=== PATIENT | male | born 1960 | race Caucasian/White ===

== ENCOUNTER 2020-08-03 06:56 | Emergency (ER) | payer OTHER ==
[~2020-08-03] VITALS: Ht 182.9 cm; Wt 117.9 kg
[~2020-08-03 06:56] MED LIST: ALBIPROI INH; ALBU90I INH; ALBU90OI INH; ALBU90OI6 INH; AMLO10; AMOX500 PO; ATECHL; ATEN50; AZIT250 PO; Augmentin 875-1 EACH PO; Bactrim Ds Tab1 EACH PO; CALCAVITDA PO; CEPH500 PO; CLAR500 PO; Chantix1 EACH; DIPH25 PO; DOXY100 PO; Duoneb 2.5-0.5 M3 ML INH; FISH1000 PO; GABA300; GABA600 PO; GLIP5ER PO; GUAI100SY; HYDACE10B PO; HYDACE5 PO; IBUP600; INSULANPEN; LISI10 PO; LISI20 PO; LISI5 PO; LUNESTA; METF500 PO; OFLO.3OPSO OP; PRAV10 PO; PRAV20 PO; PRED10 PO; PRED20 PO; PRIMATINE MIST; Percocet 5-3251 EACH PO; Prednisone20 MG PO; RXALBOI INH; Reglan10 MG PO; SPACER IH; THERA FLU; TOUJEO SOL300 UNIT/1 SQ; TRAZ100; VARE1; Vistaril50 MG PO; Zofran Odt4 MG SL
[2020-08-03] MEDS ORDERED: PRINIVIL10 MG PO (07:38)
[2020-08-03] MEDS ORDERED: BASAGLAR K100 UNIT/7 SQ (07:38)
[2020-08-03] MEDS ORDERED: Zofran4 MG PO (08:20)
== END 2020-08-03 09:25 | disposition home or self-care (01) ==
LOC: ER 06:56
DX: R11.2 Nausea with vomiting, unspecified (principal); R19.7 Diarrhea, unspecified; E11.9 Type 2 diabetes mellitus without complications; I10 Essential (primary) hypertension; F17.210 Nicotine dependence, cigarettes, uncomplicated; Z79.4 Long term (current) use of insulin; Z79.899 Other long term (current) drug therapy
CPT/HCPCS: 99283; A9270

== ENCOUNTER 2021-03-30 17:41 | Emergency (ER) | payer OTHER ==
[~2021-03-30] VITALS: Ht 182.9 cm; Wt 113.4 kg
[~2021-03-30 17:41] MED LIST changes: +BASAGLAR K100 UNIT/7 SQ; +PRINIVIL10 MG PO; +Zofran4 MG PO
[2021-03-30 18:29] LABS: BASOPHILS ABSOLUTE AUTO 0.08 K/mm3 (0.00-0.23); BASOPHILS PERCENT AUTO 1 % (0-2); EOSINOPHILS ABSOLUTE AUTO 0.41 K/mm3 (0.00-0.68); EOSINOPHILS PERCENT AUTO 5 % (0-6); Hemoglobin 15.2 g/dL (13.5-17.5); IMMATURE GRAN ABSOLUTE AUTO 0.03 K/mm3 (0.00-0.10); IMMATURE GRAN PERCENT AUTO 0 % (0-1); LYMPHOCYTES ABSOLUTE AUTO 2.03 K/mm3 (0.84-5.20); LYMPHOCYTES PERCENT AUTO 24 % (21-46); MONOCYTES ABSOLUTE AUTO 0.54 K/mm3 (0.16-1.47); MONOCYTES PERCENT AUTO 6 % (4-13); Mean Corpuscular HGB 28.3 pg (26.0-34.0); Mean Corpuscular Volume 86 fL (80-100); Mean Platelet Volume 9.9 fL (9.1-12.4); NEUTROPHILS ABSOLUTE AUTO 5.52 K/mm3 (1.96-9.15); NEUTROPHILS PERCENT AUTO 64 % (41-73); Platelet Count 254 K/mm3 (150-400); RDW Coefficient Variation 13.6 % (11.7-14.2); RDW Standard Deviation 43.1 fL (35.1-46.3); Red Blood Cell Count 5.37 M/mm3 (4.30-5.90); White Blood Cell Count 8.61 K/mm3 (4.00-11.30)
[2021-03-30 18:43] LABS: Alanine Aminotransfer (ALT/SGP 19 U/L (12-78); Albumin, Blood 3.2 g/dL (3.4-5.0); Albumin/Globulin Ratio 0.7 (0.8-1.8); Alk Phos 118 U/L (50-136); Anion Gap 3 mmol/L (6-16); Aspartate Aminotrans (AST/SGOT 10 U/L (12-37); Bilirubin, Total 0.2 mg/dL (0.1-1.0); Blood Urea Nitrogen 14 mg/dL (8-24); Bun/Creatinine Ratio 19.3 (12.0-20.0); CO2, Blood 27 mmol/L (21-32); Calcium, Blood 8.8 mg/dL (8.5-10.1); Chloride, Blood 104 mmol/L (98-108); Creatinine, Blood 0.73 mg/dL (0.60-1.20); Globulin, Blood 4.4 g/dL (2.2-4.0); Glomerular Filtration Rate >60 (60-); Glucose, Blood 304 mg/dL (70-99); Sodium, Blood 134 mmol/L (136-145); Total Protein, Blood 7.6 g/dL (6.4-8.2)
[2021-03-30] MEDS ORDERED: Bactrim Ds Tab1 EACH PO (19:32)
[2021-03-30] MEDS ORDERED: CEPH500 PO (19:32)
== END 2021-03-30 19:46 | disposition home or self-care (01) ==
LOC: ER 17:41
PROVIDERS: Physician Assistant
DX: L03.031 Cellulitis of right toe (principal); L03.115 Cellulitis of right lower limb; E11.42 Type 2 diabetes mellitus with diabetic polyneuropathy; I10 Essential (primary) hypertension; J45.909 Unspecified asthma, uncomplicated; F17.210 Nicotine dependence, cigarettes, uncomplicated; Z79.899 Other long term (current) drug therapy; Z79.4 Long term (current) use of insulin
CPT/HCPCS: 36415; 73660; 80053; 85025; 85651; 86141; 99283-25; A9270

== ENCOUNTER 2021-12-21 17:30 | Emergency (ER) | payer OTHER ==
[~2021-12-21] VITALS: Ht 185.4 cm; Wt 108.9 kg
[~2021-12-21 17:30] MED LIST changes: +BASAGLAR K100 UNIT/1 SC; +GABA100
[2021-12-21 18:59] LABS: BASOPHILS ABSOLUTE AUTO 0.05 K/mm3 (0.00-0.23); BASOPHILS PERCENT AUTO 0 % (0-2); EOSINOPHILS ABSOLUTE AUTO 0.09 K/mm3 (0.00-0.68); EOSINOPHILS PERCENT AUTO 1 % (0-6); Hematocrit 49.8 % (37.0-53.0); Hemoglobin 16.4 g/dL (13.5-17.5); IMMATURE GRAN ABSOLUTE AUTO 0.07 K/mm3 (0.00-0.10); IMMATURE GRAN PERCENT AUTO 0 % (0-1); LYMPHOCYTES ABSOLUTE AUTO 1.11 K/mm3 (0.84-5.20); LYMPHOCYTES PERCENT AUTO 7 % (21-46); MONOCYTES ABSOLUTE AUTO 0.84 K/mm3 (0.16-1.47); MONOCYTES PERCENT AUTO 5 % (4-13); Mean Corpuscular HGB 28.3 pg (26.0-34.0); Mean Corpuscular HGB Conc 32.9 g/dL (31.5-36.5); Mean Corpuscular Volume 86 fL (80-100); Mean Platelet Volume 10.6 fL (9.1-12.4); NEUTROPHILS PERCENT AUTO 86 % (41-73); Platelet Count 207 K/mm3 (150-400); RDW Coefficient Variation 13.2 % (11.7-14.2); RDW Standard Deviation 41.1 fL (35.1-46.3); Red Blood Cell Count 5.79 M/mm3 (4.30-5.90); White Blood Cell Count 15.66 K/mm3 (4.00-11.30)
[2021-12-21 19:15] LABS: Albumin, Blood 3.2 g/dL (3.4-5.0); Albumin/Globulin Ratio 0.6 (0.8-1.8); Bilirubin, Total 0.5 mg/dL (0.1-1.0); Bun/Creatinine Ratio 17.2 (12.0-20.0); Calcium, Blood 9.1 mg/dL (8.5-10.1); Creatinine, Blood 0.7 mg/dL (0.60-1.20); Globulin, Blood 5.2 g/dL (2.2-4.0); Potassium, Blood 3.9 mmol/L (3.5-5.5); Total Protein, Blood 8.4 g/dL (6.4-8.2)
[2021-12-21] MEDS ORDERED: Clindamycin HC150 MG PO (23:49)
[2021-12-23] MEDS ORDERED: Bactrim Ds Tab1 EACH PO (13:17)
[2021-12-23] MEDS ORDERED: CEPH500 PO (13:17)
== END 2021-12-22 | disposition home or self-care (01) ==
LOC: ER 17:30
PROVIDERS: Student in an Organized Health Care Education/Training Program
DX: L03.115 Cellulitis of right lower limb (principal); I10 Essential (primary) hypertension; E11.40 Type 2 diabetes mellitus with diabetic neuropathy, unspecified; J44.9 Chronic obstructive pulmonary disease, unspecified; F17.210 Nicotine dependence, cigarettes, uncomplicated; Z79.899 Other long term (current) drug therapy; Z79.4 Long term (current) use of insulin
CPT/HCPCS: 36415; 73630; 73701; 80053; 85025; 93971; A9270; J0696; Q9967

== ENCOUNTER 2021-12-23 11:04 | Emergency (ER) | payer OTHER ==
[~2021-12-23] VITALS: Ht 185.4 cm; Wt 108.9 kg
[~2021-12-23 11:04] MED LIST changes: +Clindamycin HC150 MG PO
[2021-12-23 12:19] LABS: BASOPHILS ABSOLUTE AUTO 0.04 K/mm3 (0.00-0.23); BASOPHILS PERCENT AUTO 0 % (0-2); EOSINOPHILS ABSOLUTE AUTO 0.04 K/mm3 (0.00-0.68); EOSINOPHILS PERCENT AUTO 0 % (0-6); Hematocrit 45.8 % (37.0-53.0); Hemoglobin 15.6 g/dL (13.5-17.5); IMMATURE GRAN ABSOLUTE AUTO 0.06 K/mm3 (0.00-0.10); IMMATURE GRAN PERCENT AUTO 1 % (0-1); LYMPHOCYTES ABSOLUTE AUTO 1.13 K/mm3 (0.84-5.20); LYMPHOCYTES PERCENT AUTO 9 % (21-46); MONOCYTES ABSOLUTE AUTO 0.75 K/mm3 (0.16-1.47); MONOCYTES PERCENT AUTO 6 % (4-13); Mean Corpuscular HGB 28.4 pg (26.0-34.0); Mean Corpuscular HGB Conc 34.1 g/dL (31.5-36.5); Mean Corpuscular Volume 83 fL (80-100); Mean Platelet Volume 10.5 fL (9.1-12.4); NEUTROPHILS ABSOLUTE AUTO 11.03 K/mm3 (1.96-9.15); NEUTROPHILS PERCENT AUTO 85 % (41-73); Platelet Count 238 K/mm3 (150-400); RDW Coefficient Variation 13.1 % (11.7-14.2); RDW Standard Deviation 40.1 fL (35.1-46.3); Red Blood Cell Count 5.49 M/mm3 (4.30-5.90); White Blood Cell Count 13.05 K/mm3 (4.00-11.30)
[2021-12-23 12:39] LABS: Albumin, Blood 2.7 g/dL (3.4-5.0); Albumin/Globulin Ratio 0.5 (0.8-1.8); Bilirubin, Total 0.8 mg/dL (0.1-1.0); Bun/Creatinine Ratio 16.8 (12.0-20.0); Calcium, Blood 8.7 mg/dL (8.5-10.1); Creatinine, Blood 0.6 mg/dL (0.60-1.20); Globulin, Blood 5.1 g/dL (2.2-4.0); Potassium, Blood 4.1 mmol/L (3.5-5.5); Total Protein, Blood 7.8 g/dL (6.4-8.2)
[2021-12-23] MEDS ORDERED: CEPH500 PO (13:17)
[2021-12-23] MEDS ORDERED: Bactrim Ds Tab1 EACH PO (13:17)
== END 2021-12-23 13:10 | disposition home or self-care (01) ==
LOC: ER 11:04
PROVIDERS: Physician Assistant
DX: L03.115 Cellulitis of right lower limb (principal); I10 Essential (primary) hypertension; J44.9 Chronic obstructive pulmonary disease, unspecified; E11.9 Type 2 diabetes mellitus without complications; F17.210 Nicotine dependence, cigarettes, uncomplicated; Z79.899 Other long term (current) drug therapy
CPT/HCPCS: 36415; 80053; 85025

== ENCOUNTER 2022-01-23 11:16 | Emergency (ER) | payer OTHER ==
[~2022-01-23] VITALS: Ht 185.4 cm; Wt 108.9 kg
[2022-01-23] MEDS ORDERED: CEPH500 PO (12:02)
== END 2022-01-23 12:09 | disposition home or self-care (01) ==
LOC: ER 11:16
DX: L03.116 Cellulitis of left lower limb (principal); I10 Essential (primary) hypertension; J44.9 Chronic obstructive pulmonary disease, unspecified; E11.9 Type 2 diabetes mellitus without complications; F17.210 Nicotine dependence, cigarettes, uncomplicated; Z79.899 Other long term (current) drug therapy; Z79.4 Long term (current) use of insulin
CPT/HCPCS: 73630

== ENCOUNTER 2022-02-10 09:11 | Emergency (ER) | payer OTHER ==
[~2022-02-10] VITALS: Ht 177.8 cm; Wt 99.8 kg
[2022-02-10] MEDS ORDERED: Atarax10 MG PO (09:45)
[2022-02-10] MEDS ORDERED: CYMBALTA30 M2 PO (09:45)
[2022-02-10] MEDS ORDERED: OXYC10TA19 PO (09:45)
[2022-02-10] MEDS ORDERED: Cyclobenzaprine5 MG PO (11:44)
== END 2022-02-10 12:10 | disposition home or self-care (01) ==
LOC: ER 09:11
DX: M54.2 Cervicalgia (principal); G89.29 Other chronic pain; E11.42 Type 2 diabetes mellitus with diabetic polyneuropathy; R60.0 Localized edema; I10 Essential (primary) hypertension; J44.9 Chronic obstructive pulmonary disease, unspecified; F17.210 Nicotine dependence, cigarettes, uncomplicated; S91.301A Unspecified open wound, right foot, initial encounter; X58.XXXA Exposure to other specified factors, initial encounter; Z79.899 Other long term (current) drug therapy; Z79.4 Long term (current) use of insulin
CPT/HCPCS: 72040

== ENCOUNTER 2022-02-10 17:11 | Emergency (ER) | payer OTHER ==
[~2022-02-10] VITALS: Ht 193 cm; Wt 108.9 kg
[~2022-02-10 17:11] MED LIST changes: +Atarax10 MG PO; +CYMBALTA30 M2 PO; +Cyclobenzaprine5 MG PO; +OXYC10TA19 PO
[2022-02-12] MEDS ORDERED: NEURONTIN300 MG PO (19:33)
== END 2022-02-10 17:36 | disposition home or self-care (01) ==
LOC: ER 17:11
DX: M54.2 Cervicalgia (principal); M79.89 Other specified soft tissue disorders; E11.40 Type 2 diabetes mellitus with diabetic neuropathy, unspecified; J44.9 Chronic obstructive pulmonary disease, unspecified; F17.210 Nicotine dependence, cigarettes, uncomplicated; I10 Essential (primary) hypertension; Z79.899 Other long term (current) drug therapy; Z79.4 Long term (current) use of insulin
CPT/HCPCS: 99281

== ENCOUNTER 2022-02-12 14:46 | Inpatient (IN) | payer OTHER ==
[~2022-02-12] VITALS: Ht 180.3 cm; Wt 115.5 kg
[2022-02-12 15:18] LABS: BASOPHILS ABSOLUTE AUTO 0.03 K/mm3 (0.00-0.23); BASOPHILS PERCENT AUTO 0 % (0-2); EOSINOPHILS PERCENT AUTO 0 % (0-6); Hemoglobin 11.5 g/dL (13.5-17.5); IMMATURE GRAN ABSOLUTE AUTO 0.11 K/mm3 (0.00-0.10); IMMATURE GRAN PERCENT AUTO 1 % (0-1); LYMPHOCYTES ABSOLUTE AUTO 0.81 K/mm3 (0.84-5.20); LYMPHOCYTES PERCENT AUTO 5 % (21-46); MONOCYTES ABSOLUTE AUTO 0.94 K/mm3 (0.16-1.47); MONOCYTES PERCENT AUTO 6 % (4-13); Mean Corpuscular HGB 26.4 pg (26.0-34.0); Mean Corpuscular HGB Conc 32.9 g/dL (31.5-36.5); Mean Corpuscular Volume 81 fL (80-100); Mean Platelet Volume 9.9 fL (9.1-12.4); NEUTROPHILS ABSOLUTE AUTO 15.35 K/mm3 (1.96-9.15); NEUTROPHILS PERCENT AUTO 89 % (41-73); Platelet Count 452 K/mm3 (150-400); RDW Coefficient Variation 14.3 % (11.7-14.2); RDW Standard Deviation 42.5 fL (35.1-46.3); Red Blood Cell Count 4.35 M/mm3 (4.30-5.90); White Blood Cell Count 17.24 K/mm3 (4.00-11.30)
[2022-02-12 15:28] LABS: Albumin, Blood 1.7 g/dL (3.4-5.0); Albumin/Globulin Ratio 0.3 (0.8-1.8); Bilirubin, Total 0.3 mg/dL (0.1-1.0); Bun/Creatinine Ratio 15.4 (12.0-20.0); Calcium, Blood 8.7 mg/dL (8.5-10.1); Creatinine, Blood 0.46 mg/dL (0.60-1.20); Total Protein, Blood 7.7 g/dL (6.4-8.2)
[2022-02-12] MEDS ORDERED: NEURONTIN300 MG PO ×2 (19:33)
[2022-02-12] MEDS ORDERED: HUMALOG KW100 UNIT/1 SC (19:33)
[2022-02-12] MEDS ORDERED: CEPH500 PO ×2 (19:33→19:34)
[2022-02-12] MEDS ORDERED: BASAGLAR K100 UNIT/8 SC (19:33)
[2022-02-12] MEDS ORDERED: HYDHCL25 PO (19:34)
[2022-02-12] MEDS ORDERED: CYMBALTA30 M2 PO (19:34)
[2022-02-13 04:18] LABS: BASOPHILS ABSOLUTE AUTO 0.05 K/mm3 (0.00-0.23); BASOPHILS PERCENT AUTO 0 % (0-2); EOSINOPHILS ABSOLUTE AUTO 0.01 K/mm3 (0.00-0.68); EOSINOPHILS PERCENT AUTO 0 % (0-6); Hemoglobin 10.8 g/dL (13.5-17.5); IMMATURE GRAN PERCENT AUTO 1 % (0-1); LYMPHOCYTES ABSOLUTE AUTO 0.98 K/mm3 (0.84-5.20); LYMPHOCYTES PERCENT AUTO 7 % (21-46); MONOCYTES ABSOLUTE AUTO 0.79 K/mm3 (0.16-1.47); MONOCYTES PERCENT AUTO 6 % (4-13); Mean Corpuscular HGB Conc 31.8 g/dL (31.5-36.5); Mean Corpuscular Volume 82 fL (80-100); Mean Platelet Volume 9.9 fL (9.1-12.4); NEUTROPHILS PERCENT AUTO 85 % (41-73); Platelet Count 431 K/mm3 (150-400); RDW Coefficient Variation 14.5 % (11.7-14.2); RDW Standard Deviation 42.9 fL (35.1-46.3); Red Blood Cell Count 4.16 M/mm3 (4.30-5.90); White Blood Cell Count 13.23 K/mm3 (4.00-11.30)
[2022-02-13 04:55] LABS: Albumin, Blood 1.6 g/dL (3.4-5.0); Albumin/Globulin Ratio 0.3 (0.8-1.8); Bilirubin, Total 0.4 mg/dL (0.1-1.0); Bun/Creatinine Ratio 18.4 (12.0-20.0); Creatinine, Blood 0.6 mg/dL (0.60-1.20); Total Protein, Blood 6.6 g/dL (6.4-8.2)
--- NOTE | 2022-02-13 08:00 | NUR ---
ADMITTED TONIGHT WITH C/O NECK PAIN TO ER,HOWEVER ADMIT DX R/T L FOOT "OSTEOMYLITIS" PT FALLING ASLEEP WHILE BEING QUESTIONED FOR ADMIT. PT DEMANDING OF CARE. I CALLED AND OBTAINED ORDER FOR PAIN MEDS PER PT REQUEST PT WITHOUT TEETH. DIFF TO UNDERSTAND.
--- NOTE | 2022-02-13 16:10 | NUR ---
SHIFT SUMMARY PATIENT TIRED AND SLEPT MOST OF SHIFT. INDEPENDENT UP TO BATHROOM. SLURRED SPEECH AT BASELINE. LEFT FOOT WITH LARGE ULCER AND WOUND. OPEN TO AIR AND NO DRAINAGE. DR MTZ CONSULTED. PLAN IS FOR OPEN BIOPSY TOMORROW 02/14/22. NPO AFTER MIDNIGHT. IV FLUID RUNNING. MEDICATED FOR PAIN PRN. SS INSULIN COVERAGE. WILL GIVE REPORT TO RN ASSUMING CARE AT THIS TIME.
--- NOTE | 2022-02-13 16:55 | NUR ---
ASSUMED CARE OF PT, PT SLEEPING, AWAKENS EASILY WHEN INSULIN GIVEN, DENIES ANY DISCOMFORT AT THIS TIME, REPORT TO NOC RN.
[2022-02-14 03:25] LABS: SARS-Cov-2 (COVID-19) PCR, MMC NEGATIVE (NEGATIVE)
[2022-02-14 05:01] LABS: Hematocrit 32.1 % (37.0-53.0); Hemoglobin 10.4 g/dL (13.5-17.5); Mean Corpuscular HGB 26.3 pg (26.0-34.0); Mean Corpuscular HGB Conc 32.4 g/dL (31.5-36.5); Mean Corpuscular Volume 81 fL (80-100); Mean Platelet Volume 9.6 fL (9.1-12.4); Platelet Count 354 K/mm3 (150-400); RDW Coefficient Variation 14.2 % (11.7-14.2); Red Blood Cell Count 3.95 M/mm3 (4.30-5.90); White Blood Cell Count 13.72 K/mm3 (4.00-11.30)
[2022-02-14 05:17] LABS: Bun/Creatinine Ratio 15.3 (12.0-20.0); Calcium, Blood 7.5 mg/dL (8.5-10.1); Creatinine, Blood 0.46 mg/dL (0.60-1.20); Potassium, Blood 3.4 mmol/L (3.5-5.5)
--- NOTE | 2022-02-14 08:08 | NUR ---
SUMMARY PT REFUSING TO ANSWER FURTHER QUESTIONS REGARDING ADMIT HX.
--- NOTE | 2022-02-14 10:40 | NUR ---
THE WAS BROUGHT TO DAY SURGERY FOR HIS PROCEDURE.
--- NOTE | 2022-02-14 11:18 | NUR ---
02/14/22 1118 Fer Marquez NO ABX PER
--- NOTE | 2022-02-14 12:58 | NUR ---
POST OP S/P OPEN BIOPSY OF LEFT FOOT BY DR. BAILEY, PT ABLE TO MOVE SELF TO BED, LLE W/ SHAY WRAP DSG, C/D/I, DENIES ANY PAIN, LUNGS CLEAR, DIMINISHED AT BASES, HRR, ACTIVE BT'S X4, CONT. TO MONITOR VS AND ANY CHANGES.
--- NOTE | 2022-02-14 17:27 | NUR ---
SUMMARY S/P BONE BIOPSY OF L FOOT, DENIES ANY PAIN ON FOOT, CONT. TO C/O NECK PAIN, MEDICATED WITH 1 OXYCODONE FOR NECK PAIN TODAY, PT HAD LOW GRADE TEMPS AND HIGH BLOOD PRESSURE, DR. CARRILLO NOTIFIED THIS AM, UP TO THE BATHROOM OR USES URINAL AT BEDSIDE, REFUSED TO SIT ON CHAIR, PT SITS UP TO DANGLE, L FOOT DSG C/D/I, NO ACUTE CHANGES THIS SHIFT.
--- NOTE | 2022-02-14 23:39 | NUR ---
INSULINE DOSAGE CHANGED PT'S CBG AT 1999 WAS 398, ADMINISTERED 5 UNITS OF HUMALOG AND 20 UNITS OF INSULIN GARGLINE. CBG RECHECKED AT 2299 AND IT WAS 375, CALLED DR. TOSCANO, NOTIFIED THAT THE PT STATES HE TAKES 50 UNITS OF INSULIN GARGLINE AT HOME AND A SLIDING SCALE HUMALOG. NEW ORDERS ADDED: 10 UNITS OF INSULIN GARGLINE NOW AND WILL ADJUST BEDTIME INSULIN FROM 20 UNITS TO 30 UNITS. SEE EMR FOR CHANGES. WILL MONITOR BLOOD GLUCOSE AND WILL GRADUALLY ADJUST INSULIN GARGLINE COVERAGE PER DR. TOSCANO.
--- NOTE | 2022-02-15 05:18 | NUR ---
SHIFT SUMMARY POD1 BONE BIOPSY OF L FOOT. DENIES PAIN IN HIS L FOOT BUT REPORTS NECK PAIN AND HEADACHE. PT REPORTS H/A WORSE THIS MORNING. HE WAS CRYING IN HIS ROOM, UNABLE TO SLEEP AND DISTRESSED. CALLED DR. SHER, NOTIFIED AND AN ORDER FOR ONE TIME 50MCG OF [place] WAS GIVEN WITH A RELIEF. PT ALSO HAVE INCREASED CBG LAST NIGHT. CALLED DR. TOSCANO REGARDING CBG MANAGEMENT, SEE EMR NOTES. NEW ORDERS IN PLACE. PT IND IN ROOM. CALLS APPROPRIATELY. PROVIDE EDUCATION OF DIABETIC DIET. PT IS NON COMPLIANT. PT ALSO HARD TO UNDERSTAND BECAUSE HE DOESNT HAVE TEETH. IV FLUIDS INFUSING. PT TOLERATING PO INTAKE DENIES NAUSEA AND VOMITING. CALL LIGHT WITHIN REACH. WILL CONTINUE TO MONITOR AND WILL PROVIDE REPORT TO ONCOMING NURSE.
--- NOTE | 2022-02-15 18:14 | NUR ---
SHIFT SUMMARY POD 1 OPEN BONE BIOPSY OF LEFT FOOT. LEFT FOOT HAS ABD PAD, GAUZE, AND SHAY WRAP DRESSING IN PLACE, C/D/I. PATIENT REPORTS NO PAIN SINCE FLEXERIL GIVEN THIS AM. EATING, DRINKING, & VOIDING WELL. CALLS APPROPRIATELY, WILL REPORT TO ONCOMING RN.
[2022-02-16 05:18] LABS: Hematocrit 36.1 % (37.0-53.0); Hemoglobin 11.7 g/dL (13.5-17.5); Mean Corpuscular HGB 26.1 pg (26.0-34.0); Mean Corpuscular HGB Conc 32.4 g/dL (31.5-36.5); Mean Corpuscular Volume 80 fL (80-100); Mean Platelet Volume 9.7 fL (9.1-12.4); Platelet Count 371 K/mm3 (150-400); RDW Coefficient Variation 14.3 % (11.7-14.2); RDW Standard Deviation 41.9 fL (35.1-46.3); Red Blood Cell Count 4.49 M/mm3 (4.30-5.90)
[2022-02-16 05:38] LABS: Bun/Creatinine Ratio 11.9 (12.0-20.0); Calcium, Blood 7.3 mg/dL (8.5-10.1); Creatinine, Blood 0.5 mg/dL (0.60-1.20); Potassium, Blood 3.8 mmol/L (3.5-5.5)
--- NOTE | 2022-02-16 08:00 | NUR ---
PATIENT DECLINES USE OF WALKER TO AMBULATE TO BATHROOM AND DECLINES STAFF ASSISTANCE, THEREFOR NOT FOLLOWING NWB RESTRICTIONS ON LEFT FOOT.
[2022-02-16 12:05] LABS: Vancomycin, Trough 7.3 ug/mL (5.0-10.0)
--- NOTE | 2022-02-16 15:26 | NUR ---
SHIFT SUMMARY NO ACUTE CHANGES THIS SHIFT. PATIENT RESTIING IN BED MOST OF SHIFT, TO EDGE OF BED FOR MEALS AND TO USE URINAL, INDEPENDENT. SHAY WRAP REMAINS IN PLACE TO LEFT FOOT, C/D/I. GOOD CAP REFILL. PATIENT DENIES PAIN. CALLS APPROPRIATELY, WILL REPORT TO ONCOMING RN.
--- NOTE | 2022-02-16 16:30 | NUR ---
DR BAILEY, MUNICIPAL BOND TRADER, AT BEDSIDE TO CHANGE DRESSING ON LEFT FOOT. MODERATE BLEEDING PRESENT ON DRESSING, DRY AT THIS TIME. FOOT STILL WARM TO THE TOUCH. DR BAILEY STATED PATIENT IS READY TO DISCHARGE, FROM HIS STANDPOINT, WHEN THE MEDICAL TEAM DEEMS APPROPRIATE. WILL PLAN TO START ON ORAL ABX. HOSPITALIST CALLED BY THIS RN AND UPDATE GIVEN. NO NEW ORDERS.
--- NOTE | 2022-02-17 04:31 | NUR ---
SHIFT SUMMARY NO ACUTE CHANGES OVERNIGHT. PT HAD A INCONTINENT VOID, PEED ON THE FLOOR, HOUSEKEEPIGN CAME IN TO CLEAN, FULL LINEN CHANGED AND NEW PANTS GIVENT PT. PT REPORTS MILD H/A MEDICATED WITH HARINDER AND FLEXERIL FOR NECK PAIN. IV ABX GIVEN LAST NIGHT. CALL LIGHT WITHIN REACH. WILL CONTINUE TO MONITOR AND WILL PROVIDE REPORT TO ONCOMING NURSE.
[2022-02-17 05:45] LABS: Bun/Creatinine Ratio 11.3 (12.0-20.0); Calcium, Blood 7.5 mg/dL (8.5-10.1); Creatinine, Blood 0.44 mg/dL (0.60-1.20); Potassium, Blood 3.6 mmol/L (3.5-5.5)
[2022-02-17 06:01] LABS: Hematocrit 35.5 % (37.0-53.0); Hemoglobin 11.5 g/dL (13.5-17.5); Mean Corpuscular HGB 25.8 pg (26.0-34.0); Mean Corpuscular HGB Conc 32.4 g/dL (31.5-36.5); Mean Corpuscular Volume 80 fL (80-100); Platelet Count 327 K/mm3 (150-400); RDW Coefficient Variation 14.3 % (11.7-14.2); RDW Standard Deviation 41.3 fL (35.1-46.3); Red Blood Cell Count 4.46 M/mm3 (4.30-5.90)
--- NOTE | 2022-02-17 08:08 | NUR ---
PT REFUSED MORNING VS. ALLOWED CBG AND ASSESSMENT.
[2022-02-17] MEDS ORDERED: Cyclobenzaprine5 MG PO (13:46)
[2022-02-17] MEDS ORDERED: CUBICIN RF500 M1 IV (13:47)
[2022-02-17] MEDS ORDERED: DOCUZEN 8.6-501 EACH PO (13:47)
[2022-02-17] MEDS ORDERED: RIFA300 PO (13:48)
[2022-02-17] MEDS ORDERED: MIRALAX1713 PO (13:48)
[2022-02-17] MEDS ORDERED: VISBIOME 112.51 EACH PO (13:49)
--- NOTE | 2022-02-17 17:25 | NUR ---
discharging PT STATED WAS TOLD HE WOULD BE GIVEN RIDE UPON DISCHARGE. UPON INQUIRING WHAT ADDRESS, HE GAVE HIS HOME ADDRESS. PT WAS INFORMED HOSPITAL COULD NOT TRANSPORT HIM TO THIS ADDRESS DUE TO RESTRAINING ORDER PROHIBITING HIM. PT CONTINUED TO WANT TO BE TAKEN TO [facility] (WHERE HE RESIDES). HAD NURSING RECEIVING SPECIALIST, BING, COME SPEAK TO PT. PT WAS EXPLICITLY TOLD IF HE GOES TO HIS HOME ADDRESS, HE MAY BE ARRESTED DUE TO RESTRAINING ORDER. PLAN TO ARRANGE TAXI TO [facility] [address] PER PT REQUEST.
--- NOTE | 2022-02-17 18:03 | NUR ---
DISCHARGING REVIEWED DC PAPERWORK W/PT; VERBALIZED UNDERSTANDING. DC'D IV TO LFA, CATHETER INTACT. FLUSHED PICC LINE. PROVIDED POST OP SHOE TO PROTECT L FOOT DRESSING. PT IS NOT COMPLIANT W/NONWB INSTRUCTIONS. PROVIDED SOCKS FOR OTHER FOOT. ARRANGED TAXI RIDE TO [facility] [address] PER PT REQUEST. ADVISED PT EXPLICITLY THAT COULD NOT GO TO HOME ADDRESS DUE TO RESTRAINING ORDER. PT VERBALIZED UNDERSTANDING. TAXI TO ARRIVE IN APPROXIMATELY 30 MIN
--- NOTE | 2022-02-17 18:38 | NUR ---
PT LEFT UNIT IN WC W/POSSESSIONS AND DC PAPERWORK IN HAND TO MEET TAXI OUTSIDE.
== END 2022-02-17 18:50 | disposition home or self-care (01) | DRG 629 ==
LOC: ER 14:46 → SURS 20:00
PROVIDERS: Family Medicine; Internal Medicine; Physician Assistant; Podiatrist; ADMIT Internal Medicine
PROC: 02HV33Z Insertion of Infusion Device into Superior Vena Cava, Percutaneous Approach (ICD-10-PCS; 2022-02-12)
PROC: 0QBP0ZX Excision of Left Metatarsal, Open Approach, Diagnostic (ICD-10-PCS; principal; 2022-02-15)
DX: E11.69 Type 2 diabetes mellitus with other specified complication (principal); L03.116 Cellulitis of left lower limb; M86.172 Other acute osteomyelitis, left ankle and foot; E11.65 Type 2 diabetes mellitus with hyperglycemia; J44.9 Chronic obstructive pulmonary disease, unspecified; M43.6 Torticollis; B95.62 Methicillin resistant Staphylococcus aureus infection as the cause of diseases classified elsewhere; E11.42 Type 2 diabetes mellitus with diabetic polyneuropathy; I10 Essential (primary) hypertension; Z20.822 Contact with and (suspected) exposure to COVID-19; M54.2 Cervicalgia; F17.210 Nicotine dependence, cigarettes, uncomplicated; Z89.411 Acquired absence of right great toe; Z79.899 Other long term (current) drug therapy; Z79.4 Long term (current) use of insulin; Z91.14 Patient's other noncompliance with medication regimen
CPT/HCPCS: 36415; 36569; 73630; 80048; 80053; 80202; 82947; 83036; 85025; 85027; 85651; 86140; 87071; 87075; 87077; 87147; 87186; 87205; 88307; 93971; 94760; 96361; 96374; 99285-25; A9270; C1751; J0878; J1100; J1815; J1885; J2001; J2250; J2405; J2543; J2704; J2795; J3010; J3370; J3480; J7030; J7050; J7060; J7120; U0004

== ENCOUNTER 2022-02-19 13:04 | Emergency (ER) | payer OTHER ==
[~2022-02-19] VITALS: Ht 185.4 cm; Wt 117.9 kg
[~2022-02-19 13:04] MED LIST changes: +BASAGLAR K100 UNIT/8 SC; +CUBICIN RF500 M1 IV; +DOCUZEN 8.6-501 EACH PO; +HUMALOG KW100 UNIT/1 SC; +HYDHCL25 PO; +MIRALAX1713 PO; +NEURONTIN300 MG PO; +RIFA300 PO; +VISBIOME 112.51 EACH PO
[2022-02-25] MEDS ORDERED: CEPH500 PO (00:10)
[2022-02-25] MEDS ORDERED: ONDA4ODT MM (00:11)
[2022-02-25] MEDS ORDERED: SULTRIDS PO (00:18)
== END 2022-02-19 13:41 ==
LOC: ER 13:04
DX: Z02.89 Encounter for other administrative examinations (principal); E11.69 Type 2 diabetes mellitus with other specified complication; M86.9 Osteomyelitis, unspecified; F17.210 Nicotine dependence, cigarettes, uncomplicated
CPT/HCPCS: 99283

== ENCOUNTER 2022-02-19 21:05 | Emergency (ER) | payer OTHER ==
[~2022-02-19] VITALS: Ht 185.4 cm; Wt 117.9 kg
== END 2022-02-19 21:39 | disposition home or self-care (01) ==
LOC: ER 21:05
DX: Z45.2 Encounter for adjustment and management of vascular access device (principal); E11.9 Type 2 diabetes mellitus without complications; F17.210 Nicotine dependence, cigarettes, uncomplicated; Z79.4 Long term (current) use of insulin; Z79.899 Other long term (current) drug therapy
CPT/HCPCS: 99281

== ENCOUNTER 2022-02-20 14:56 | Emergency (ER) | payer OTHER ==
[~2022-02-20] VITALS: Ht 185.4 cm; Wt 120.2 kg
[2022-02-20 15:34] LABS: BASOPHILS ABSOLUTE AUTO 0.04 K/mm3 (0.00-0.23); BASOPHILS PERCENT AUTO 0 % (0-2); EOSINOPHILS PERCENT AUTO 0 % (0-6); Hematocrit 36.2 % (37.0-53.0); Hemoglobin 11.7 g/dL (13.5-17.5); IMMATURE GRAN ABSOLUTE AUTO 0.35 K/mm3 (0.00-0.10); IMMATURE GRAN PERCENT AUTO 2 % (0-1); LYMPHOCYTES PERCENT AUTO 9 % (21-46); MONOCYTES ABSOLUTE AUTO 1.09 K/mm3 (0.16-1.47); MONOCYTES PERCENT AUTO 6 % (4-13); Mean Corpuscular HGB 25.6 pg (26.0-34.0); Mean Corpuscular HGB Conc 32.3 g/dL (31.5-36.5); Mean Corpuscular Volume 79 fL (80-100); Mean Platelet Volume 9.5 fL (9.1-12.4); NEUTROPHILS ABSOLUTE AUTO 16.38 K/mm3 (1.96-9.15); NEUTROPHILS PERCENT AUTO 84 % (41-73); Platelet Count 382 K/mm3 (150-400); RDW Coefficient Variation 14.8 % (11.7-14.2); RDW Standard Deviation 42.8 fL (35.1-46.3); Red Blood Cell Count 4.57 M/mm3 (4.30-5.90); White Blood Cell Count 19.56 K/mm3 (4.00-11.30)
[2022-02-20 15:51] LABS: Albumin, Blood 1.8 g/dL (3.4-5.0); Albumin/Globulin Ratio 0.3 (0.8-1.8); Bilirubin, Total 0.6 mg/dL (0.1-1.0); Bun/Creatinine Ratio 14.9 (12.0-20.0); Calcium, Blood 8.4 mg/dL (8.5-10.1); Creatinine, Blood 0.67 mg/dL (0.60-1.20); Globulin, Blood 6.1 g/dL (2.2-4.0); Potassium, Blood 3.4 mmol/L (3.5-5.5); Total Protein, Blood 7.9 g/dL (6.4-8.2)
[2022-02-20 16:09] LABS: Source, Urine Clean Catch
[2022-02-20 16:15] LABS: Appearance, Urine Clear (Clear); Bilirubin, Urine Neg (Neg); Blood, Urine 2+ (Neg); Color, Urine Yellow (P-Yellow); Glucose Qualitative, Urine 4+ (Neg); Ketones, Urine Neg (Neg); Leukocyte Esterase, Urine Neg (Neg); Nitrite, Urine Neg (Neg); Protein, Urine Neg (Neg); Urobilinogen, Urine 2+ (Normal)
[2022-02-20 16:24] LABS: White Blood Cells, Urine 0-2 /hpf (0-5)
[2022-02-20 16:25] LABS: Bacteria Few /hpf; Squamous Epithelial Cells Rare /hpf (Few)
[2022-02-20 16:34] LABS: Base Excess Venous 7.2 mmol/L; Bicarbonate Venous 30.5 mmol/L (24.0-30.0); PCO2 Venous 37.9 mmHg (38-42); pH Blood Venous 7.51 (7.34-7.37)
== END 2022-02-20 18:41 | disposition home or self-care (01) ==
LOC: ER 14:56
PROVIDERS: Student in an Organized Health Care Education/Training Program
DX: E11.65 Type 2 diabetes mellitus with hyperglycemia (principal); E11.621 Type 2 diabetes mellitus with foot ulcer; E11.69 Type 2 diabetes mellitus with other specified complication; M86.9 Osteomyelitis, unspecified; I10 Essential (primary) hypertension; J44.9 Chronic obstructive pulmonary disease, unspecified; F17.210 Nicotine dependence, cigarettes, uncomplicated; Z89.421 Acquired absence of other right toe(s); Z79.4 Long term (current) use of insulin; Z91.14 Patient's other noncompliance with medication regimen; Z79.899 Other long term (current) drug therapy; Z95.828 Presence of other vascular implants and grafts
CPT/HCPCS: 36415; 80053; 81001; 82010; 82803; 82947; 83605; 85025; 93005; 93010; 96365; 99285-25; A9270; J0878; J1815; J7030

== ENCOUNTER 2022-04-03 01:43 | Day surgery (SDC) | payer OTHER ==
[~2022-04-03] VITALS: Ht 185.4 cm; Wt 109.8 kg
[~2022-04-03 01:43] MED LIST changes: +ONDA4ODT MM; +SULTRIDS PO; +VANCOMYCIN HCL1 G1 IV
== END 2022-04-03 11:15 | disposition home or self-care (01) ==
LOC: ATC 01:43
DX: E11.69 Type 2 diabetes mellitus with other specified complication (principal); M86.8X7 Other osteomyelitis, ankle and foot; I10 Essential (primary) hypertension; J44.9 Chronic obstructive pulmonary disease, unspecified; E11.40 Type 2 diabetes mellitus with diabetic neuropathy, unspecified; Z79.4 Long term (current) use of insulin
CPT/HCPCS: 96365; J0878

== ENCOUNTER 2022-04-04 02:11 | Day surgery (SDC) | payer OTHER ==
[2022-04-05] MEDS ORDERED: Roxicodone5 MG PO (13:30)
== END 2022-04-04 10:40 | disposition home or self-care (01) ==
LOC: ATC 02:11
DX: E11.69 Type 2 diabetes mellitus with other specified complication (principal); M86.9 Osteomyelitis, unspecified; E11.42 Type 2 diabetes mellitus with diabetic polyneuropathy; I10 Essential (primary) hypertension; J44.9 Chronic obstructive pulmonary disease, unspecified; F17.210 Nicotine dependence, cigarettes, uncomplicated; Z79.4 Long term (current) use of insulin
CPT/HCPCS: 96365; J0878

== ENCOUNTER 2022-04-05 02:10 | Day surgery (SDC) | payer OTHER ==
[2022-04-05] MEDS ORDERED: Roxicodone5 MG PO (13:30)
== END 2022-04-05 10:45 | disposition home or self-care (01) ==
LOC: ATC 02:10
DX: E11.69 Type 2 diabetes mellitus with other specified complication (principal); M86.8X7 Other osteomyelitis, ankle and foot; E11.65 Type 2 diabetes mellitus with hyperglycemia; F17.210 Nicotine dependence, cigarettes, uncomplicated; I10 Essential (primary) hypertension; J44.9 Chronic obstructive pulmonary disease, unspecified; Z79.4 Long term (current) use of insulin; E11.40 Type 2 diabetes mellitus with diabetic neuropathy, unspecified; R25.2 Cramp and spasm
CPT/HCPCS: 96365; A9270; J0878

== ENCOUNTER 2022-04-05 10:47 | Emergency (ER) | payer OTHER ==
[~2022-04-05] VITALS: Ht 188 cm; Wt 93.0 kg
[2022-04-05 12:57] LABS: BASOPHILS ABSOLUTE AUTO 0.07 K/mm3 (0.00-0.23); BASOPHILS PERCENT AUTO 1 % (0-2); EOSINOPHILS ABSOLUTE AUTO 0.06 K/mm3 (0.00-0.68); EOSINOPHILS PERCENT AUTO 1 % (0-6); Hematocrit 32.7 % (37.0-53.0); Hemoglobin 10.5 g/dL (13.5-17.5); IMMATURE GRAN ABSOLUTE AUTO 0.05 K/mm3 (0.00-0.10); IMMATURE GRAN PERCENT AUTO 1 % (0-1); LYMPHOCYTES ABSOLUTE AUTO 1.91 K/mm3 (0.84-5.20); LYMPHOCYTES PERCENT AUTO 19 % (21-46); MONOCYTES PERCENT AUTO 9 % (4-13); Mean Corpuscular HGB 25.4 pg (26.0-34.0); Mean Corpuscular HGB Conc 32.1 g/dL (31.5-36.5); Mean Corpuscular Volume 79 fL (80-100); Mean Platelet Volume 8.5 fL (9.1-12.4); NEUTROPHILS PERCENT AUTO 70 % (41-73); Platelet Count 454 K/mm3 (150-400); RDW Coefficient Variation 18.4 % (11.7-14.2); RDW Standard Deviation 53.4 fL (35.1-46.3); Red Blood Cell Count 4.14 M/mm3 (4.30-5.90); White Blood Cell Count 9.99 K/mm3 (4.00-11.30)
[2022-04-05 13:12] LABS: Bun/Creatinine Ratio 22.5 (12.0-20.0); Calcium, Blood 9.2 mg/dL (8.5-10.1); Creatinine, Blood 0.49 mg/dL (0.60-1.20); Potassium, Blood 3.8 mmol/L (3.5-5.5)
[2022-04-05] MEDS ORDERED: Roxicodone5 MG PO (13:30)
== END 2022-04-05 13:37 | disposition home or self-care (01) ==
LOC: ER 10:47
PROVIDERS: Emergency Medicine
DX: G89.18 Other acute postprocedural pain (principal); E11.9 Type 2 diabetes mellitus without complications; J44.9 Chronic obstructive pulmonary disease, unspecified; I10 Essential (primary) hypertension; Z79.4 Long term (current) use of insulin; Z79.899 Other long term (current) drug therapy; Z89.432 Acquired absence of left foot
CPT/HCPCS: 80048; 85025; 99283; A9270

== ENCOUNTER 2022-04-05 23:13 | Emergency (ER) | payer OTHER ==
[~2022-04-05] VITALS: Ht 182.9 cm; Wt 113.4 kg
[~2022-04-05 23:13] MED LIST changes: +Roxicodone5 MG PO
== END 2022-04-06 00:05 | disposition home or self-care (01) ==
LOC: ER 23:13
DX: R25.2 Cramp and spasm (principal); E11.40 Type 2 diabetes mellitus with diabetic neuropathy, unspecified; I10 Essential (primary) hypertension; J44.9 Chronic obstructive pulmonary disease, unspecified; F17.210 Nicotine dependence, cigarettes, uncomplicated; Z79.899 Other long term (current) drug therapy; Z79.4 Long term (current) use of insulin
CPT/HCPCS: 99283; A9270

== ENCOUNTER 2022-04-06 02:19 | Day surgery (SDC) | payer OTHER | END 2022-04-06 11:10 | disposition home or self-care (01) | LOC: ATC 02:19 | DX: E11.69 Type 2 diabetes mellitus with other specified complication (principal); M86.9 Osteomyelitis, unspecified; E11.42 Type 2 diabetes mellitus with diabetic polyneuropathy; I10 Essential (primary) hypertension; J44.9 Chronic obstructive pulmonary disease, unspecified; F17.210 Nicotine dependence, cigarettes, uncomplicated; Z79.4 Long term (current) use of insulin; Z89.421 Acquired absence of other right toe(s) | CPT/HCPCS: 96365; J0878 ==

== ENCOUNTER 2022-04-07 00:49 | Day surgery (SDC) | payer OTHER | END 2022-04-07 11:55 | disposition home or self-care (01) | LOC: ATC 00:49 | DX: E11.69 Type 2 diabetes mellitus with other specified complication (principal); M86.8X7 Other osteomyelitis, ankle and foot; E11.65 Type 2 diabetes mellitus with hyperglycemia; Z79.4 Long term (current) use of insulin; J44.9 Chronic obstructive pulmonary disease, unspecified; F17.210 Nicotine dependence, cigarettes, uncomplicated | CPT/HCPCS: 96365; J0878 ==

== ENCOUNTER 2022-04-08 00:27 | Day surgery (SDC) | payer OTHER | END 2022-04-08 10:55 | disposition home or self-care (01) | LOC: ATC 00:27 | DX: E11.69 Type 2 diabetes mellitus with other specified complication (principal); M86.8X7 Other osteomyelitis, ankle and foot; F17.210 Nicotine dependence, cigarettes, uncomplicated; J44.9 Chronic obstructive pulmonary disease, unspecified; E11.9 Type 2 diabetes mellitus without complications | CPT/HCPCS: 96365; J0878 ==

== ENCOUNTER 2022-04-09 02:17 | Day surgery (SDC) | payer OTHER ==
[2022-04-10] MEDS ORDERED: CUBICIN RF500 M1 IV (11:37)
== END 2022-04-09 23:43 | disposition home or self-care (01) ==
LOC: ATC 02:17
DX: E11.69 Type 2 diabetes mellitus with other specified complication (principal); M86.8X7 Other osteomyelitis, ankle and foot; E11.40 Type 2 diabetes mellitus with diabetic neuropathy, unspecified; I10 Essential (primary) hypertension; J44.9 Chronic obstructive pulmonary disease, unspecified
CPT/HCPCS: 96365; C1751; J0878

== ENCOUNTER 2022-04-10 00:12 | Day surgery (SDC) | payer OTHER ==
--- NOTE | 2022-04-10 11:27 | NUR ---
Patient arrived late to appt this morning at 1030. His speech was slurred and he was forgetful. His reports that he has not been acting himself and experiencing AMS since yesterday. He is having difficulty finding his words when trying to speak to me. He is spacing out often. His pupils are small and fixed. Nonreactive to light. Left arm is weaker than the right and he has slight left arm drift. Patients reports that he has fallen multiple times within the last few days and he did hit his head a few days ago. Patient was discharged and taken directly to ER to be evaluated. Called and spoke to the charge nurse to let them know he was heading straight up. Finished his dapto infusion as he was being transported to ER
[2022-04-10] MEDS ORDERED: CUBICIN RF500 M1 IV (11:37)
== END 2022-04-10 11:06 | disposition home or self-care (01) ==
LOC: ATC 00:12
DX: E11.69 Type 2 diabetes mellitus with other specified complication (principal); M86.8X7 Other osteomyelitis, ankle and foot; Z79.4 Long term (current) use of insulin; J44.9 Chronic obstructive pulmonary disease, unspecified; F17.210 Nicotine dependence, cigarettes, uncomplicated; E11.65 Type 2 diabetes mellitus with hyperglycemia
CPT/HCPCS: J0878

== ENCOUNTER 2022-04-10 11:11 | Emergency (ER) | payer OTHER ==
[~2022-04-10] VITALS: Ht 185.4 cm; Wt 93.0 kg
[2022-04-10] MEDS ORDERED: CUBICIN RF500 M1 IV (11:37)
[2022-04-10 11:43] LABS: BASOPHILS ABSOLUTE AUTO 0.08 K/mm3 (0.00-0.23); BASOPHILS PERCENT AUTO 1 % (0-2); EOSINOPHILS ABSOLUTE AUTO 0.07 K/mm3 (0.00-0.68); EOSINOPHILS PERCENT AUTO 1 % (0-6); Hematocrit 33.1 % (37.0-53.0); Hemoglobin 10.2 g/dL (13.5-17.5); IMMATURE GRAN ABSOLUTE AUTO 0.06 K/mm3 (0.00-0.10); IMMATURE GRAN PERCENT AUTO 1 % (0-1); LYMPHOCYTES ABSOLUTE AUTO 1.55 K/mm3 (0.84-5.20); LYMPHOCYTES PERCENT AUTO 18 % (21-46); MONOCYTES ABSOLUTE AUTO 0.68 K/mm3 (0.16-1.47); MONOCYTES PERCENT AUTO 8 % (4-13); Mean Corpuscular HGB 24.3 pg (26.0-34.0); Mean Corpuscular HGB Conc 30.8 g/dL (31.5-36.5); Mean Corpuscular Volume 79 fL (80-100); NEUTROPHILS ABSOLUTE AUTO 6.06 K/mm3 (1.96-9.15); NEUTROPHILS PERCENT AUTO 71 % (41-73); Platelet Count 404 K/mm3 (150-400); RDW Coefficient Variation 17.9 % (11.7-14.2); RDW Standard Deviation 51.4 fL (35.1-46.3); Red Blood Cell Count 4.19 M/mm3 (4.30-5.90)
[2022-04-10 12:27] LABS: Albumin, Blood 2.8 g/dL (3.4-5.0); Albumin/Globulin Ratio 0.5 (0.8-1.8); Bilirubin, Total 0.3 mg/dL (0.1-1.0); Bun/Creatinine Ratio 20.6 (12.0-20.0); Calcium, Blood 9.3 mg/dL (8.5-10.1); Creatinine, Blood 0.53 mg/dL (0.60-1.20); Globulin, Blood 6.1 g/dL (2.2-4.0); Potassium, Blood 3.7 mmol/L (3.5-5.5); Total Protein, Blood 8.9 g/dL (6.4-8.2)
== END 2022-04-10 15:33 | disposition home or self-care (01) ==
LOC: ER 11:11
PROVIDERS: Physician Assistant
DX: R47.81 Slurred speech (principal); T40.2X5A Adverse effect of other opioids, initial encounter; M50.31 Other cervical disc degeneration, high cervical region; I10 Essential (primary) hypertension; E11.40 Type 2 diabetes mellitus with diabetic neuropathy, unspecified; J44.9 Chronic obstructive pulmonary disease, unspecified; F17.210 Nicotine dependence, cigarettes, uncomplicated; Z79.899 Other long term (current) drug therapy; Z79.4 Long term (current) use of insulin
CPT/HCPCS: 36415; 70450; 72125; 80053; 82947; 85025; 93005; 93010; 99285-25; A9270; L0160

== ENCOUNTER 2022-04-11 02:57 | Day surgery (SDC) | payer OTHER | END 2022-04-11 14:31 | disposition home or self-care (01) | LOC: ATC 02:57 | DX: E11.69 Type 2 diabetes mellitus with other specified complication (principal); M86.9 Osteomyelitis, unspecified; E11.42 Type 2 diabetes mellitus with diabetic polyneuropathy; I10 Essential (primary) hypertension; J44.9 Chronic obstructive pulmonary disease, unspecified; F17.210 Nicotine dependence, cigarettes, uncomplicated; Z79.4 Long term (current) use of insulin | CPT/HCPCS: J0878 ==

== ENCOUNTER 2022-04-12 00:58 | Day surgery (SDC) | payer OTHER | END 2022-04-12 15:10 | disposition home or self-care (01) | LOC: ATC 00:58 | DX: E11.69 Type 2 diabetes mellitus with other specified complication (principal); M86.9 Osteomyelitis, unspecified; E11.42 Type 2 diabetes mellitus with diabetic polyneuropathy; I10 Essential (primary) hypertension; J44.9 Chronic obstructive pulmonary disease, unspecified; F17.210 Nicotine dependence, cigarettes, uncomplicated; Z79.4 Long term (current) use of insulin; Z89.421 Acquired absence of other right toe(s) | CPT/HCPCS: J0878 ==

== ENCOUNTER 2022-04-13 00:18 | Day surgery (SDC) | payer OTHER | END 2022-04-13 15:09 | disposition home or self-care (01) | LOC: ATC 00:18 | DX: E11.69 Type 2 diabetes mellitus with other specified complication (principal); M86.8X7 Other osteomyelitis, ankle and foot; E11.65 Type 2 diabetes mellitus with hyperglycemia; Z79.4 Long term (current) use of insulin; J44.9 Chronic obstructive pulmonary disease, unspecified; F17.210 Nicotine dependence, cigarettes, uncomplicated | CPT/HCPCS: J0878 ==

== ENCOUNTER 2022-04-14 01:26 | Day surgery (SDC) | payer OTHER | END 2022-04-14 15:10 | disposition home or self-care (01) | LOC: ATC 01:26 | DX: E11.69 Type 2 diabetes mellitus with other specified complication (principal); M86.8X7 Other osteomyelitis, ankle and foot; E11.65 Type 2 diabetes mellitus with hyperglycemia; Z79.4 Long term (current) use of insulin; J44.9 Chronic obstructive pulmonary disease, unspecified; F17.210 Nicotine dependence, cigarettes, uncomplicated | CPT/HCPCS: J0878 ==

== ENCOUNTER 2022-04-15 01:58 | Day surgery (SDC) | payer OTHER | END 2022-04-15 15:23 | disposition home or self-care (01) | LOC: ATC 01:58 | DX: E11.69 Type 2 diabetes mellitus with other specified complication (principal); M86.8X7 Other osteomyelitis, ankle and foot; E11.65 Type 2 diabetes mellitus with hyperglycemia; Z79.4 Long term (current) use of insulin; J44.9 Chronic obstructive pulmonary disease, unspecified; F17.210 Nicotine dependence, cigarettes, uncomplicated | CPT/HCPCS: J0878 ==

== ENCOUNTER 2022-04-16 04:07 | Day surgery (SDC) | payer OTHER | END 2022-04-16 15:10 | disposition home or self-care (01) | LOC: ATC 04:07 | DX: E11.69 Type 2 diabetes mellitus with other specified complication (principal); M86.9 Osteomyelitis, unspecified; E11.42 Type 2 diabetes mellitus with diabetic polyneuropathy; I10 Essential (primary) hypertension; J44.9 Chronic obstructive pulmonary disease, unspecified; F17.210 Nicotine dependence, cigarettes, uncomplicated; Z79.4 Long term (current) use of insulin; Z89.421 Acquired absence of other right toe(s) | CPT/HCPCS: J0878 ==

== ENCOUNTER 2022-04-18 03:34 | Day surgery (SDC) | payer OTHER | END 2022-04-18 15:04 | disposition home or self-care (01) | LOC: ATC 03:34 | DX: E11.69 Type 2 diabetes mellitus with other specified complication (principal); M86.8X7 Other osteomyelitis, ankle and foot; E11.65 Type 2 diabetes mellitus with hyperglycemia; Z79.4 Long term (current) use of insulin; J44.9 Chronic obstructive pulmonary disease, unspecified; F17.210 Nicotine dependence, cigarettes, uncomplicated | CPT/HCPCS: J0878 ==

== ENCOUNTER 2022-04-19 00:08 | Day surgery (SDC) | payer OTHER | END 2022-04-19 14:49 | disposition home or self-care (01) | LOC: ATC 00:08 | DX: E11.69 Type 2 diabetes mellitus with other specified complication (principal); M86.8X7 Other osteomyelitis, ankle and foot; J44.9 Chronic obstructive pulmonary disease, unspecified; E11.65 Type 2 diabetes mellitus with hyperglycemia; F17.210 Nicotine dependence, cigarettes, uncomplicated | CPT/HCPCS: J0878 ==

== ENCOUNTER 2022-04-20 02:07 | Day surgery (SDC) | payer OTHER | END 2022-04-20 15:06 | disposition home or self-care (01) | LOC: ATC 02:07 | DX: E11.69 Type 2 diabetes mellitus with other specified complication (principal); M86.8X7 Other osteomyelitis, ankle and foot; J44.9 Chronic obstructive pulmonary disease, unspecified; E11.40 Type 2 diabetes mellitus with diabetic neuropathy, unspecified; I10 Essential (primary) hypertension | CPT/HCPCS: J0878 ==

== ENCOUNTER 2022-04-21 02:56 | Day surgery (SDC) | payer OTHER | END 2022-04-21 14:44 | disposition home or self-care (01) | LOC: ATC 02:56 | DX: E11.69 Type 2 diabetes mellitus with other specified complication (principal); M86.8X7 Other osteomyelitis, ankle and foot; I10 Essential (primary) hypertension; J44.9 Chronic obstructive pulmonary disease, unspecified; E11.40 Type 2 diabetes mellitus with diabetic neuropathy, unspecified | CPT/HCPCS: J0878 ==

== ENCOUNTER 2022-04-22 02:44 | Day surgery (SDC) | payer OTHER | END 2022-04-22 15:36 | disposition home or self-care (01) | LOC: ATC 02:44 | DX: E11.69 Type 2 diabetes mellitus with other specified complication (principal); M86.8X7 Other osteomyelitis, ankle and foot; E11.65 Type 2 diabetes mellitus with hyperglycemia; Z79.4 Long term (current) use of insulin; J44.0 Chronic obstructive pulmonary disease with (acute) lower respiratory infection; F17.210 Nicotine dependence, cigarettes, uncomplicated | CPT/HCPCS: J0878 ==

== ENCOUNTER 2022-04-23 02:17 | Day surgery (SDC) | payer OTHER | END 2022-04-23 15:10 | disposition home or self-care (01) | LOC: ATC 02:17 | DX: E11.69 Type 2 diabetes mellitus with other specified complication (principal); M86.8X7 Other osteomyelitis, ankle and foot; E11.65 Type 2 diabetes mellitus with hyperglycemia; Z79.4 Long term (current) use of insulin; F17.210 Nicotine dependence, cigarettes, uncomplicated; J44.9 Chronic obstructive pulmonary disease, unspecified | CPT/HCPCS: J0878 ==

== ENCOUNTER 2022-04-24 01:29 | Day surgery (SDC) | payer OTHER | END 2022-04-24 14:55 | disposition home or self-care (01) | LOC: ATC 01:29 | DX: M86.9 Osteomyelitis, unspecified (principal); E11.65 Type 2 diabetes mellitus with hyperglycemia; J44.9 Chronic obstructive pulmonary disease, unspecified; F17.210 Nicotine dependence, cigarettes, uncomplicated; I10 Essential (primary) hypertension; E11.40 Type 2 diabetes mellitus with diabetic neuropathy, unspecified; Z79.4 Long term (current) use of insulin; Z79.899 Other long term (current) drug therapy | CPT/HCPCS: J0878 ==

== ENCOUNTER 2022-05-18 21:55 | Inpatient (IN) | payer OTHER ==
[~2022-05-18 21:55] MED LIST changes: -HUMALOG KW100 UNIT/1 SC; +NOVOLOG FL100 UNIT/3 SC
[2022-05-19] MEDS ORDERED: LISI20 PO (02:35)
[2022-05-19] MEDS ORDERED: OXYC10TA19 PO (02:36)
[2022-05-19] MEDS ORDERED: BUSPIRONE HCL10 M6 PO (02:36)
[2022-05-19] MEDS ORDERED: Omeprazole20 M1 PO (02:37)
[2022-05-19] MEDS ORDERED: SULFAMETHOXAZO1 EAC1 PO (02:38)
[2022-05-19] MEDS ORDERED: CYMBALTA30 M2 PO (02:40)
[2022-05-19] MEDS ORDERED: HYDHCL25 PO (02:40)
[2022-05-19] MEDS ORDERED: QUETIAPINE FUMA25 MG PO (02:41)
[2022-05-19] MEDS ORDERED: INSULIN GL100 UNIT/2 SC (02:45)
[2022-05-25] MEDS ORDERED: CYCL10 PO (00:21)
[2022-05-25] MEDS ORDERED: [UNRECOGNIZED DRUG - OTHER] IV (00:23)
[2022-05-25] MEDS ORDERED: MIRALAX17 GM PO (00:27)
[2022-05-25] MEDS ORDERED: LACT PO (00:27)
[2022-05-25] MEDS ORDERED: RIFA300 PO (00:28)
[2022-05-25] MEDS ORDERED: DOCUZEN 8.6-501 EACH PO (00:28)
[2022-05-25] MEDS ORDERED: AMLO10 PO (00:31)
== END 2022-05-31 21:00 | disposition short-term general hospital (02) | DRG 853 ==
DX: A41.02 Sepsis due to Methicillin resistant Staphylococcus aureus (principal); G06.1 Intraspinal abscess and granuloma; G92.8 Other toxic encephalopathy; E87.20 Acidosis, unspecified; L03.116 Cellulitis of left lower limb; N39.0 Urinary tract infection, site not specified; M86.172 Other acute osteomyelitis, left ankle and foot; G81.94 Hemiplegia, unspecified affecting left nondominant side; G95.29 Other cord compression; E11.69 Type 2 diabetes mellitus with other specified complication; Z28.21 Immunization not carried out because of patient refusal; Z20.822 Contact with and (suspected) exposure to COVID-19; E11.40 Type 2 diabetes mellitus with diabetic neuropathy, unspecified; I10 Essential (primary) hypertension; E11.65 Type 2 diabetes mellitus with hyperglycemia; F17.210 Nicotine dependence, cigarettes, uncomplicated; R65.20 Severe sepsis without septic shock; B96.1 Klebsiella pneumoniae [K. pneumoniae] as the cause of diseases classified elsewhere; E87.6 Hypokalemia; E83.39 Other disorders of phosphorus metabolism; E83.42 Hypomagnesemia; F15.10 Other stimulant abuse, uncomplicated; J44.9 Chronic obstructive pulmonary disease, unspecified; Z87.19 Personal history of other diseases of the digestive system; Z89.421 Acquired absence of other right toe(s); Z98.890 Other specified postprocedural states; Z79.4 Long term (current) use of insulin; Z79.899 Other long term (current) drug therapy